=== PATIENT | male | born 1965 | race Caucasian/White ===

== ENCOUNTER 2018-05-07 06:12 | Day surgery (SDC) | payer BC ==
[2018-04-28 12:42] VITALS: BMI 41.8
[2018-05-07] MEDS ORDERED: EPINEPHrine 1:1,000 1 MG/1 ML - 30ML VIAL (INJECTION) ONE (07:14)
[2018-05-07] MEDS ORDERED: ePHEDrine SULFATE 50 MG/1 ML AMPULE ONE (07:24)
[2018-05-07] MEDS ORDERED: PROPOFOL 20 ML ONE ×2 (07:24)
[2018-05-07] MEDS ORDERED: ceFAZolin SODIUM 1 GM VIAL ONE (07:25)
[2018-05-07] MEDS ORDERED: ROPIVACAINE HCL 0.5% 30ML VIAL ONE (07:29)
[2018-05-07] MEDS ORDERED: EPINEPHrine/PF 1 MG/1 ML (1:1,000) AMPULE ONE (07:29)
[2018-05-07] MEDS ORDERED: MIDAZOLAM HCL 2 MG/2 ML SINGLE DOSE VIAL ONE ×3 (07:29→09:58)
[2018-05-07] MEDS ORDERED: BACITRACIN 15 GM TUBE TOPICAL OINTMENT ONE (07:35)
[2018-05-07] MEDS ORDERED: LIDOCAINE 1%/EPI 1:100000 (20 ML MULTI DOSE VIAL) ONE (07:41)
[2018-05-07] MEDS ORDERED: TRANEXAMIC ACID 1000 MG/10 ML VIAL ONE (08:51)
[2018-05-07] MEDS ORDERED: DEXMEDETOMIDINE HCL 200 MCG/2 ML IVPB ONE ×2 (08:57→09:05)
[2018-05-07] MEDS ORDERED: LIDOCAINE 1%/EPI 1:100000 (50 ML MULTI DOSE VIAL) NR ONE (09:59)
[2018-05-07] MEDS ORDERED: ONDANSETRON 4 MG/2 ML VIAL IVPUSH PRN (10:14)
[2018-05-07] MEDS ORDERED: oxyCODONE HCL 5 MG TABLET PO PRN ×2 (10:14)
[2018-05-07] MEDS ORDERED: LACTATED RINGERS SOLUTION 1,000 ML IV SCH (10:15)
--- NOTE | 2018-05-07 12:26 | OP ---
DATE OF OPERATION: 05/07/2018 PREOPERATIVE DIAGNOSIS: Right shoulder rotator cuff tear, impingement, biceps tendinopathy. POSTOPERATIVE DIAGNOSIS: Right shoulder rotator cuff tear, impingement, biceps tendinopathy. PROCEDURE: Right shoulder arthroscopy with rotator cuff repair, subacromial decompression, biceps tenodesis. SURGEON: Adelaide Swenson MD ULTRASOUND TECHNOL: MAXINE Salinas whose skillful assistance was necessary for the safe and timely performance of this procedure. Ms. Jiménez was able to help provide limb positioning, retraction, drive the camera, assist in suture passage and fixation as well as provide assistance during the tenodesis for the open retraction portion. ANESTHESIA: Regional. POSTOPERATIVE CONDITION: Stable. COMPLICATIONS: None. IMPLANTS: [employer] SwiveLock x4, [employer] Q-Fix x1. INDICATIONS: This is a pleasant gentleman who has been suffering from right shoulder pain. MRI demonstrated full-thickness rotator cuff tear as well as biceps tendinosis. Treatment options including nonoperative versus operative management were reviewed. Operative risks were reviewed in detail including bleeding, infection, neurovascular injury, need for further surgery, postoperative pain and stiffness, failure of the rotator cuff for biceps to heal with the possibility of retear in the future. We reviewed medical risks such as heart attack, stroke, DVT, PE, and . I reviewed the postoperative rehabilitation protocol. I addressed all of the patient's and his 's questions and concerns. He voiced understanding and elected to proceed. DESCRIPTION OF PROCEDURE: The patient was brought to the operating room after administration of a regional block in the preoperative holding area. The patient was placed into the beach chair position while still awake careful to pad all of the bony prominences. The right upper extremity was now prepped and draped in the usual sterile fashion. A preoperative dose of antibiotics was given, and the usual time-out procedure was performed. The right upper extremity was examined demonstrating full range of motion and good stability. Bony landmarks were now marked out. A posterior vein portal was now established using an 11 blade. Examination of the glenohumeral joint demonstrated mild articular wear on both the glenoid and humeral surfaces. There were degenerative changes of the labrum. The intra-articular portion of the biceps appeared unremarkable. An anterior portal was established. Examination of the subscapularis demonstrated no tearing. Passing arthroscope more superiorly demonstrated a full-thickness tear of both the supraspinatus and the anterior portion of the infraspinatus. Biceps tenotomy was now performed seeing as how the MRI demonstrated extra-articular tearing of the bicipital tendon. The base of the labrum was now debrided using a shaver as well as electrocautery to make a smooth base. Some of the synovitis was debrided inside the shoulder. The camera was now passed into the subacromial space. Here, he was noted to have anterior bony impingement. Radiofrequency probe was used to debride the soft tissue from the subacromial surface. The shaver was then used to provide a bony subacromial decompression. The rotator was now examined. A lateral portal was established. The cannula was placed. The rotator cuff was grasped and demonstrated good mobility. The decision was made to provide a double row repair. Spinal needle was now used to identify 2 insertion points for mild row anchors. An 11 blade was used to make stab wounds, and both anchors were punched and then inserted. Excellent purchase was achieved. The sutures were now passed through the cuff utilizing the Firstpass suture passer. The suture was then and passed into a crossing pattern. A luggage tag suture was now placed in the midportion of the cuff between the 2 pass sutures on its free edge. Two more posterior strands were now loaded into the cannula and then loaded through an anchor. A punch was used then a lateral row anchor was inserted more posteriorly securing the cuff down to the footprint. This was then repeated for an anterolateral anchor. The cuff was now passed through a range of motion, and it was now covering the footprint and stable throughout a range of motion. At this time, the excess fluid was withdrawn from the joint. The portals were sutured using 3-0 nylon. The shoulder was now reprepped. Anteriorly the incision had been marked out over the anterior aspect of the pectoralis tendon prior to starting the procedure. The incision was then injected subcutaneously with lidocaine with epinephrine. A No. 15 blade was now used to make the incision. Blunt spreading was used to carried down to the fascia over the pectoralis tendon. Finger dissection was now carried down to the biceps tendon. The biceps tendon was freed of any soft tissue surrounding it and then withdrawn out the wound. The biceps screw was now roughened using an arthroscopic rasp. A Q-Fix anchor was drilled and then inserted into the portion of the groove. The suture was then whipstiched through the biceps tendon. The most proximal portion of the tendon was excised in order to maintain appropriate tension. The tendon was then drawn back into the groove utilizing crow technique and tied into place. Good tension was achieved. The wound was now copiously irrigated. The tissue was closed using vertical mattress 4-0 nylon sutures. At this point, sterile dressings were placed. The patient was placed in a sling and transferred to the recovery room in stable condition. ADELAIDE SWENSON M.D. JOSELUIS/[id number]
[2018-05-07 12:35] VITALS: TEMP 97.7
[2018-05-07 14:12] VITALS: BP 128/80; PULSE 67
== END 2018-05-07 13:50 | disposition home or self-care (01) ==
LOC: FASU 06:12
PROVIDERS: ATTEND Orthopaedic Surgery Sports Medicine
PROC: 0LQ14ZZ Repair Right Shoulder Tendon, Percutaneous Endoscopic Approach (ICD-10-PCS; principal; 2018-05-07 08:33)
PROC: 0LS14ZZ Reposition Right Shoulder Tendon, Percutaneous Endoscopic Approach (ICD-10-PCS; 2018-05-07 08:33)
PROC: 0RNJ4ZZ Release Right Shoulder Joint, Percutaneous Endoscopic Approach (ICD-10-PCS; 2018-05-07 08:33)
DX: M75.121 Complete rotator cuff tear or rupture of right shoulder, not specified as traumatic (principal); M75.41 Impingement syndrome of right shoulder; M75.21 Bicipital tendinitis, right shoulder
CPT/HCPCS: 94760